=== PATIENT | male | born 1940 | race Caucasian/White ===

== ENCOUNTER → 2020-07-18 08:37 | Outpatient (BNVA) | payer MEDICARE, SELFPAY | PROVIDERS: Visit Provider Urology | DX: N39.0 Urinary tract infection, site not specified (principal); R32 Unspecified urinary incontinence; C67.9 Malignant neoplasm of bladder, unspecified | CPT/HCPCS: 81002; 99212 ==

== ENCOUNTER 2021-01-17 08:43 | Outpatient (REF) | payer MEDICARE, BC, SELFPAY ==
[2021-01-17 17:32] LABS: Urine Cytology See Pathology rpt
== END 2021-01-17 08:44 | disposition home or self-care (01) ==
LOC: HO.LNP 08:43
PROVIDERS: Visit Provider Urology
DX: C67.9 Malignant neoplasm of bladder, unspecified (principal); N39.0 Urinary tract infection, site not specified
CPT/HCPCS: 51798; 88112; 99212

== ENCOUNTER 2021-04-24 11:44 | Outpatient (REF) | payer MEDICARE, BC, SELFPAY ==
[2021-04-24 12:59] LABS: Appearance Urine TURBID; Color Urine YELLOW; Glucose Urine UA NEG (NEG); Nitrite Urine NEG (NEG); Urine Blood 3+ (NEG); Urine Ketones NEG (NEG); Urine Protein 2+ MG/DL (NEG-TRACE)
[2021-04-24 13:04] LABS: Leukocyte Esterase Urine 3+ (NEG)
[2021-04-24 13:06] LABS: WBC Urine TNTC /HPF (0-4)
[2021-04-24 13:07] LABS: Amorphous Sediment Urine 2+ /LPF; Bacteria Urine 1+ /LPF
== END 2021-04-24 11:45 | disposition home or self-care (01) ==
LOC: HO.LAB 11:44
PROVIDERS: PCP Internal Medicine; Visit Provider Urology
DX: N39.0 Urinary tract infection, site not specified (principal)
CPT/HCPCS: 81001; 87086

== ENCOUNTER 2021-05-26 10:09 | Outpatient (REF) | payer MEDICARE, BC, SELFPAY ==
[2021-05-26 11:21] LABS: Blood Urea Nitrogen 23 mg/dL (9-16); Estimated Glomerular Filt Rate > 60
[2021-05-26 11:51] LABS: Appearance Urine TURBID; Color Urine YELLOW; Glucose Urine UA NEG (NEG); Leukocyte Esterase Urine 2+ (NEG); Nitrite Urine NEG (NEG); PH 6.5 (5.0-8.0); Specific Gravity - Urine 1.015 (1.005-1.025); Urine Blood 3+ (NEG); Urine Ketones NEG (NEG); Urine Protein 1+ MG/DL (NEG-TRACE)
[2021-05-26 13:12] LABS: WBC Urine 0 /HPF (0-4)
[2021-05-26 13:13] LABS: Oval Fat Bodies Urine NOTED
== END 2021-05-26 10:10 | disposition home or self-care (01) ==
LOC: HO.LAB 10:09
PROVIDERS: PCP Internal Medicine; Visit Provider Urology
DX: C67.9 Malignant neoplasm of bladder, unspecified (principal)
CPT/HCPCS: 36415; 81001; 82565; 84520

== ENCOUNTER 2021-06-02 08:08 | Outpatient (REF) | payer MEDICARE, BC, SELFPAY ==
--- NOTE | ~2021-06-02 | CT_ITS ---
EXAMINATION: CT ABDOMEN AND PELVIS WITHOUT CONTRAST The patient returned for delayed images following IV contrast for better opacification of the collecting systems, ureters and bladder with excreted contrast. Patient returned approximately 4 1/2 hours following the IV injections. See report from earlier the same day.
--- NOTE | ~2021-06-02 | CT_ITS ---
EXAMINATION: CT ABDOMEN AND PELVIS WITHOUT AND WITH CONTRAST CLINICAL INFORMATION: Bladder cancer COMPARISON: Previous CT of the abdomen and pelvis most recent December 2018 TECHNIQUE: Multidetector volumetric imaging was performed of the abdomen and pelvis before and after the IV administration of 85 mL of Omnipaque 350 intravenous contrast. Sagittal and coronal reformatted images were obtained on the technologist's workstation. The patient returned later on the same day for repeat imaging of the collecting systems This CT examination was performed using dose optimization techniques as appropriate, variously including the following: *Automated exposure control *Adjustment of mA and/or kV according to patient size (this includes techniques or standardized protocols for targeted exams where dose is matched to indication/reason for exam; i.e. extremities or head) *Use of iterative reconstruction technique DLP: 957 mGy-cm FINDINGS: LUNG BASES: The visualized lung bases are unremarkable. LIVER, GALLBLADDER, AND BILIARY TREE: The liver is normal in size, shape, and attenuation. No focal hepatic lesion or biliary ductal dilatation is present. The gallbladder has been removed. PANCREAS: Unremarkable SPLEEN: Unremarkable ADRENAL GLANDS: Unremarkable KIDNEYS AND URETERS: There is bilateral renal cortical thinning or scarring. There is mild right hydronephrosis. There is no left hydronephrosis. The right distal ureter appears slightly dilated. This is similar to previous there are small bilateral low-attenuation renal lesions suggestive of cysts. The largest measures 1 cm in the upper pole of the right kidney. BLADDER: The bladder is irregularly shaped and may represent a neobladder. No bladder mass or wall thickening is appreciated. GASTROINTESTINAL TRACT: The small and large bowel are unremarkable. The appendix is unremarkable. ABDOMINAL WALL: There are postsurgical changes to the anterior abdominal wall. There are several small upper abdominal ventral or incisional hernias containing fat. There is a larger lower ventral hernia containing small bowel in the periumbilical region. There is a smaller 1 cm hernia containing small bowel to the left. These appear unchanged. There is a left inguinal hernia containing fat. LYMPH NODES: There is shotty bilateral inguinal lymphadenopathy. There is shotty retroperitoneal lymphadenopathy. There is shotty small bowel mesentery lymphadenopathy and increased fat stranding in the small bowel mesentery. No enlarged lymph nodes are seen. VASCULAR: Unremarkable PELVIC VISCERA: The prostate gland appears to have been removed. OSSEOUS STRUCTURES: There are degenerative changes of the spine. There is a 5 mm anterior subluxation subluxation of L3 with respect to L4 probably related to facet arthritis. No fracture or bone lesion is seen. CT/CT abdomen pelvis wo/w con IMPRESSION: Mild right hydronephrosis and ureteral dilatation. No collecting system or ureteral mass seen. Irregularly-shaped bladder or neobladder. No bladder mass or wall thickening seen. Bilateral renal cysts. Postsurgical changes to the anterior abdominal wall and several small ventral hernias containing fat and small bowel. No evidence of obstruction. Fleischner guidelines were followed.
[2021-06-02] MEDS: iohexoL 350 MG/ML 100 ML INFUS..BTL IV (09:23)
== END 2021-06-02 08:09 | disposition home or self-care (01) ==
LOC: HO.CT 08:08
PROVIDERS: Visit Provider Urology
DX: C67.9 Malignant neoplasm of bladder, unspecified (principal)
CPT/HCPCS: 74176; 74178; Q9967

== ENCOUNTER 2021-07-18 08:29 | Outpatient (REF) | payer MEDICARE, BC, SELFPAY ==
[2021-07-21 11:54] LABS: Urine Cytology See Pathology rpt
== END 2021-07-18 08:30 | disposition home or self-care (01) ==
LOC: HO.LAB 08:29
PROVIDERS: PCP Internal Medicine; Visit Provider Urology
DX: C67.9 Malignant neoplasm of bladder, unspecified (principal); N39.0 Urinary tract infection, site not specified; R32 Unspecified urinary incontinence
CPT/HCPCS: 51798; 88112; 99212

== ENCOUNTER 2022-01-15 14:05 | Outpatient (REF) | payer MEDICARE, BC, SELFPAY | END 2022-01-15 14:06 | disposition home or self-care (01) | LOC: HO.LAB 14:05 | PROVIDERS: Visit Provider Urology | DX: N39.0 Urinary tract infection, site not specified (principal); C67.9 Malignant neoplasm of bladder, unspecified | CPT/HCPCS: 99212 ==

== ENCOUNTER 2023-01-19 08:06 | Outpatient (REF) | payer MEDICARE, BC, SELFPAY ==
[2023-01-19 16:32] LABS: Urine Cytology See Pathology rpt
== END 2023-01-19 08:07 | disposition home or self-care (01) ==
LOC: HO.LAB 08:06
PROVIDERS: Visit Provider Urology
DX: C67.9 Malignant neoplasm of bladder, unspecified (principal); N39.0 Urinary tract infection, site not specified; Z79.899 Other long term (current) drug therapy
CPT/HCPCS: 81003; 88112; 99212

== ENCOUNTER 2023-01-19 08:06 | Outpatient (AMB) | payer MEDICARE, BC, SELFPAY ==
--- NOTE | 2023-01-19 08:08 | A.OFFVIS_ITS ---
Intake Intake Visit Reasons: 1Y Follow Up(Bladder Cancer/PVR) Intake Note: Patient is present for Follow Up Urology Med: None Antibiotic Allergy: None Blood Thinner: Rivaroxaban Pharmacy: [facility] Allergies No Known Allergies [No Known Allergies*] Allergy (Verified 01/19/23 08:09) Medication List - Last Reconciled 01/19/23 by Axel Merino MD acyclovir 400 mg PO acyclovir mg PO amlodipine 5 mg PO DAILY blood sugar diagnostic ([employer] test strips) As directed carvedilol 25 mg PO BID furosemide 20 mg PO DAILY lancets ([employer] UltraSoft 2 Lancet) As directed levofloxacin 750 mg PO DAILY metformin 500 mg PO DAILY miscellaneous medical supply ([employer]ian Incontin Clamp) As directed mupirocin 2% topical TID nitrofurantoin macrocrystal 50 mg PO BEDTIME pravastatin 10 mg PO DAILY rivaroxaban 10 mg PO DAILY semaglutide (Ozempic) mg subcut sulfamethoxazole-trimethoprim 800-160 mg (Bactrim DS) 1 tab PO BID 5 days trifluridine 1% drps ophthalmic (eye) HPI HPI Comments History of Present Illness Details James is a pleasant male. He is seen for the following urologic conditions - bladder cancer Stable No urinary tract infections since last visit Imaging stable Bladder cancer radical cystectomy with neobladder in 1996 Ongoing surveillance Imaging - last CT 2018 - 11/21 NAD, mild right hydroureteronephr osis down to neobladder Cystoscopy - 2019 inflamed portions of ileum PFSH Medical History Borderline diabetes HTN (hypertension) History of recurrent UTIs History of bladder cancer Surgical History History of surgery History of prostatectomy Review of Systems Const Denies chills and Denies fever(s) Card Reports no additional complaints and Denies syncope Resp Denies cough GI Denies abdominal pain and Denies heartburn Reports as per HPI and Denies change in libido Neuro Denies syncope Psych Denies change in libido Endo Denies change in libido Physical Exam Const General: cooperative, healthy appearing, comfortable and no acute distress Orientation/consciousness: patient oriented x3 HEENT Face and sinus: Yes normal facial exam Mouth: moist mucous membranes Neck Neck: Yes normal visual inspection, Yes full ROM and Yes trachea midline Chest Chest palpation & inspection: normal inspection of the chest Resp Effort & Inspection: normal respiratory effort, able to speak in complete sentences and no respiratory distress GI Inspection: Yes normal to inspection Back/Spine/Pelvis Cervical Spine: normal cervical lordosis Thoracic/Lumbar Spine: thoracic and lumbar spine normal to inspection Skin General skin exam: no rashes or lesions noted Neuro General: patient oriented x3, gait normal, tone normal and moves all extremities Extrem General: Yes normal to inspection and Yes capillary refill normal Results AMB Urinalysis, Automated UA Leukoctes 500 [place]/uL Last Edit by Kierra Singleton [facility] on 01/19/23 08:15 UA Nitrite Negative Last Edit by Kierra Singleton [facility] on 01/19/23 08:15 UA Urobilinogen 0.2 mg/dL Last Edit by Kierra Singleton A on 01/19/23 08:1 5 UA Protein 30 mg/dL Last Edit by Kierra Singleton [facility] on 01/19/23 08:15 UA pH 6.0 Last Edit by Kierra Singleton [facility] on 01/19/23 08:15 UA Blood 80 Clem/uL Last Edit by Kierra Singleton [facility] on 01/19/23 08:15 UA Specific [place] 1.015 Last Edit by Kierra Singleton [facility] on 01/19/23 08: 15 UA Ketone Negative Last Edit by Kierra Singleton [facility] on 01/19/23 08:15 UA Bilirubin 0 mg/dL Last Edit by Kierra Singleton [facility] on 01/19/23 08:15 UA Glucose 0 mg/dL Last Edit by Kierra Singleton [facility] on 01/19/23 08:15 Results Reviewed Results Reviewed: Laboratory Last Values Urine pH (Auto) 6.0 01/19/23 08:10 Specific [place] (Auto) 1.015 01/19/23 08:10 Urine Protein (Auto) 30 mg/dL 01/19/23 08:10 Glucose (UA)(Auto) 0 mg/dL 01/19/23 08:10 Urine Ketones (Auto) Negative 01/19/23 08:10 Urine Blood (Auto) 80 Clem/uL 01/19/23 08:10 Urine Nitrite (Auto) Negative 01/19/23 08:10 Urine Bilirubin (Auto) 0 mg/dL 01/19/23 08:10 Urine Urobilinogen (Auto) 0.2 mg/dL 01/19/23 08:10 Leukocyte Esterase (Auto) 500 [place]/uL 01/19/23 08:10 Assessment & Plan Assessment & Plan (1) Recurrent UTI (urinary tract infection): Code(s): N39.0 - Urinary tract infection, site not specified (2) Bladder cancer: Code(s): C67.9 - Malignant neoplasm of bladder, unspecified Plan Questions 12 month follow-up imaging Orders: Orders AMB Urinalysis Automated Today C67.9 - Malignant neoplasm of bladder, unspecified, Z13.9 - Encounter for screening, unspecified Blood Urea Nitrogen 364 Days C67.9 - Malignant neoplasm of bladder, unspecified Creatinine 364 Days C67.9 - Malignant neoplasm of bladder, unspecified Urine Cytology Today C67.9 - Malignant neoplasm of bladder, unspecified CT abdomen pelvis wo/w IV con 364 Days C67.9 - Malignant neoplasm of bladder, unspecified Patient Instructions: Imaging studies, laboratory and physical exam results were discussed and reviewed in detail. No major barriers to patient understanding were identified. An opportunity to ask questions regarding the treatment plan was provided. All questions were answered. The patient expressed understanding and agreement with the above treatment plan. The patient is aware they should contact our office by phone for worsening of their current condition or the appearance of new urologic symptoms. Compliance is encouraged with any medications and followup testing that is ordered. It is a privilege to participate in the urologic care of your patient. If you have any questions or concerns regarding treatment for the above conditions, or other urologic issues, please do not hesitate to contact me. The office telephone contact is [phone]. This note is constructed using voice recognition software. While every effort has been made to ensure accuracy adoption counselor errors may have been included. Yours sincerely, Dr Axel Merino MD, [facility] - Urology Providers of Expert, Compassionate Care for the Genitourinary System Coding Level of Care Code Est Pt Level 4 (44761) Diagnoses Recurrent UTI (urinary tract infection) N39.0 Bladder cancer C67.9
== END 2023-01-19 09:07 | disposition home or self-care (01) ==
PROVIDERS: PCP Internal Medicine; Visit Provider Urology
DX: C67.9 Malignant neoplasm of bladder, unspecified (principal); N39.0 Urinary tract infection, site not specified; Z13.9 Encounter for screening, unspecified
CPT/HCPCS: 99214

== ENCOUNTER 2023-11-12 07:30 | Outpatient (REF) | payer MEDICARE, BC, SELFPAY ==
[2023-11-12 10:56] LABS: Appearance Urine Turbid; Color Urine Dark Yellow; Glucose Urine UA Negative (Negative); Leukocyte Esterase Urine Large (3+) (Negative); Nitrite Urine Negative (Negative); Specific Gravity - Urine 1.015 (1.005-1.025); UMIC TRIGGER UA YES; Urine Blood Large (3+) (Negative); Urine Ketones Negative (Negative); Urine Protein 30 (1+) mg/dL (Neg-Trace)
[2023-11-12 11:17] LABS: Bacteria Urine 3+ (None Seen); Hyaline Casts Urine >20 /LPF (0-2); RBC Urine >20 /HPF (0-2); WBC Urine >50 /HPF (0-5)
== END 2023-11-12 07:31 | disposition home or self-care (01) ==
LOC: HO.HMGCLDS 07:30
PROVIDERS: PCP Internal Medicine; Visit Provider Urology
DX: C67.9 Malignant neoplasm of bladder, unspecified (principal); N39.0 Urinary tract infection, site not specified; R32 Unspecified urinary incontinence
CPT/HCPCS: 81001; 87086

== ENCOUNTER 2024-01-11 06:54 | Outpatient (REF) | payer MEDICARE, BC, SELFPAY ==
--- NOTE | ~2024-01-11 | CT_ITS ---
EXAMINATION: CT ABDOMEN AND PELVIS WITHOUT AND WITH CONTRAST CLINICAL INFORMATION: Malignant neoplasm of bladder. COMPARISON: CT abdomen pelvis 06/02/2021. TECHNIQUE: Multidetector volumetric imaging was performed of the abdomen and pelvis before and after the IV administration of 350 mL of Omnipaque intravenous contrast. Sagittal and coronal reformatted images were obtained on the technologist's workstation. This CT examination was performed using dose optimization techniques as appropriate, variously including the following: *Automated exposure control *Adjustment of mA and/or kV according to patient size (this includes techniques or standardized protocols for targeted exams where dose is matched to indication/reason for exam; i.e. extremities or head) *Use of iterative reconstruction technique DLP: 1236 mGy-cm. FINDINGS: LUNG BASES: The visualized lung bases are unremarkable. LIVER, GALLBLADDER, AND BILIARY TREE: The liver is normal in size but has a nodular border suggesting cirrhosis. No focal hepatic lesion or biliary ductal dilatation is present. Status post cholecystectomy. PANCREAS: Unremarkable. SPLEEN: Unremarkable. ADRENAL GLANDS: Unremarkable. KIDNEYS AND URETERS: Again noted is bilateral renal cortical thinning with focal areas of scarring. There is bilateral pelvocaliectasis, right greater than left . No nephrocalcinosis is seen. No renal masses are seen. Both ureters are dilated, right greater than left. No obstructing stones are seen in the ureters. At the junction of the right ureter and bladder, there is some increased soft tissue density seen (8:67 and allen image). BLADDER: No bladder calculi or bladder masses are seen. GASTROINTESTINAL TRACT: The small and large bowel are unremarkable. The appendix is unremarkable. ABDOMINAL WALL: A periumbilical hernia is seen containing nonobstructed small bowel. There are epigastric hernias status post repair. LYMPH NODES: No retroperitoneal lymphadenopathy. VASCULAR: Calcific atherosclerotic changes are present in the aorta and iliofemoral vessels. There is no evidence of an abdominal aortic aneurysm. PELVIC VISCERA: Status post prostatectomy. OSSEOUS STRUCTURES: Degenerative changes are present throughout the spine. There is grade 1 anterolisthesis of L4 upon L5. No bony destructive lesions are seen. CT/CT abdomen pelvis wo/w IV con IMPRESSION: 1. Bilateral pelvocaliectasis and hydroureter, right greater than left. There is some increased soft tissue density at the junction of the right ureter and bladder. Cystoscopy may be useful for further evaluation. 2. Incidental note made of cirrhotic-appearing liver, cholecystectomy, prostatectomy and periumbilical hernia containing nonobstructed small bowel. Fleischner guidelines were followed. Electronically signed by: Mychal Keating MD 02/15/2024 09:16 PM EDT RP
[2024-01-11 08:01] LABS: Blood Urea Nitrogen 27 mg/dL (9-16); Estimated Glomerular Filt Rate 52
[2024-01-11] MEDS: iohexoL 350 MG/ML 75 ML INFUS..BTL 85 ML IV (09:31)
== END 2024-01-11 06:55 | disposition home or self-care (01) ==
LOC: HO.CT 06:54
PROVIDERS: PCP Internal Medicine; Visit Provider Urology
DX: C67.9 Malignant neoplasm of bladder, unspecified (principal)
CPT/HCPCS: 36415; 74178; 82565; 84520; Q9967

== ENCOUNTER 2024-02-11 08:31 | Outpatient (AMB) | payer MEDICARE, BC, SELFPAY ==
--- NOTE | 2024-02-11 08:39 | MHC.OFFVIS ---
Intake Visit Reasons: 1Y PVR/CT(set) Intake Note: Patient is present for 1Y Follow Up PVR/CT Urology Med:NITROFURANTOIN Antibiotic Allergy: None Blood Thinner: Rivaroxaban Team Leader Surgery Required: No Allergies No Known Allergies [No Known Allergies*] Allergy (Verified 02/11/24 08:43) HPI Comments Details: James is a pleasant male. He is seen for the following urologic conditions - bladder cancer - recurrent urinary tract infection Stable Question of urinary tract in the past week or so Maintained on daily nitrofurantoin Finds bladder emptying is optimized after bowel movement Recommend vitamin-C 1 mg daily Imaging stable Bladder cancer radical cystectomy with neobladder in 1996 Ongoing surveillance Imaging - last CT 2018 - 11/21 NAD, mild right hydroureteronephrosis down to neobladder Cystoscopy - 2019 inflamed portions of ileum Recurrent UTI in setting of neobladder Daily nitrofurantoin PFSH Medical History Borderline diabetes HTN (hypertension) History of recurrent UTIs History of bladder cancer Surgical History History of surgery History of prostatectomy Review of Systems Const Denies chills and Denies fever(s) Card Reports no additional complaints and Denies syncope Resp Denies cough GI Denies abdominal pain and Denies heartburn Reports as per HPI and Denies change in libido Neuro Denies syncope Psych Denies change in libido Endo Denies change in libido Physical Exam Const General: cooperative, healthy appearing, comfortable and no acute distress Orientation/consciousness: patient oriented x3 HEENT Face and sinus: Yes normal facial exam Mouth: moist mucous membranes Neck Neck: Yes normal visual inspection, Yes full ROM and Yes trachea midline Chest Chest palpation & inspection: normal inspection of the chest Resp Effort & Inspection: normal respiratory effort, able to speak in complete sentences and no respiratory distress GI Inspection: Yes normal to inspection Back/Spine/Pelvis Cervical Spine: normal cervical lordosis Thoracic/Lumbar Spine: thoracic and lumbar spine normal to inspection Skin General skin exam: no rashes or lesions noted Neuro General: patient oriented x3, gait normal, tone normal and moves all extremities Extrem General: Yes normal to inspection and Yes capillary refill normal Results AMB Urinalysis, Automated UA Leukoctes 500 [place]/uL Last Edit by ABAD Cosme on 02/11/24 08:53 UA Nitrite Negative Last Edit by Tuyet Warner [facility] on 02/11/24 08:53 UA Urobilinogen 0.2 mg/dL Last Edit by Tuyet Warner [facility] on 02/11/24 08:53 UA Protein 30 mg/dL Last Edit by Tuyet Warner [facility] on 02/11/24 08:53 UA pH 6.0 Last Edit by Tuyet Warner [facility] on 02/11/24 08:53 UA Blood 200 Clem/uL Last Edit by Tuyet Warner [facility] on 02/11/24 08:53 UA Specific [place] 1.015 Last Edit by Tuyet Warner [facility] on 02/11/24 08:53 UA Ketone Negative Last Edit by Tuyet Warner [facility] on 02/11/24 08:53 UA Bilirubin 0 mg/dL Last Edit by Tuyet Warner [facility] on 02/11/24 08:53 UA Glucose 0 mg/dL Last Edit by Tuyet Warner [facility] on 02/11/24 08:53 Results Reviewed Results Reviewed: Laboratory Last Values Urine pH (Auto) 6.0 02/11/24 08:52 Specific [place] (Auto) 1.015 02/11/24 08:52 Urine Protein (Auto) 30 mg/dL 02/11/24 08:52 Glucose (UA)(Auto) 0 mg/dL 02/11/24 08:52 Urine Ketones (Auto) Negative 02/11/24 08:52 Urine Blood (Auto) 200 Clem/uL 02/11/24 08:52 Urine Nitrite (Auto) Negative 02/11/24 08:52 Urine Bilirubin (Auto) 0 mg/dL 02/11/24 08:52 Urine Urobilinogen (Auto) 0.2 mg/dL 02/11/24 08:52 Leukocyte Esterase (Auto) 500 [place]/uL 02/11/24 08:52 Assessment & Plan Assessment & Plan (1) Recurrent UTI (urinary tract infection): Code(s): N39.0 - Urinary tract infection, site not specified Category: Medical (2) Bladder cancer: Code(s): C67.9 - Malignant neoplasm of bladder, unspecified Category: Medical Plan Twelve month follow-up Orders: Orders AMB Urinalysis Automated Today Z13.9 - Encounter for screening, unspecified Patient Instructions: Imaging studies, laboratory and physical exam results were discussed and reviewed in detail. No major barriers to patient understanding were identified. An opportunity to ask questions regarding the treatment plan was provided. All questions were answered. The patient expressed understanding and agreement with the above treatment plan. The patient is aware they should contact our office by phone for worsening of their current condition or the appearance of new urologic symptoms. Compliance is encouraged with any medications and followup testing that is ordered. It is a privilege to participate in the urologic care of your patient. If you have any questions or concerns regarding treatment for the above conditions, or other urologic issues, please do not hesitate to contact me. The office telephone contact is [phone]. This note is constructed using voice recognition software. While every effort has been made to ensure accuracy manager scheduling errors may have been included. Yours sincerely, Dr Axel Merino MD, [facility] - Urology Providers of Expert, Compassionate Care for the Genitourinary System Coding Level of Care Code Est Pt Level 4 (87343) Diagnoses Recurrent UTI (urinary tract infection) N39.0 Bladder cancer C67.9
== END 2024-02-11 09:16 | disposition home or self-care (01) ==
PROVIDERS: PCP Internal Medicine; Visit Provider Urology
DX: N39.0 Urinary tract infection, site not specified (principal); C67.9 Malignant neoplasm of bladder, unspecified; Z13.9 Encounter for screening, unspecified
CPT/HCPCS: 99214

== ENCOUNTER → 2024-02-11 08:31 | Outpatient (BNVA) | payer MEDICARE, BC, SELFPAY | PROVIDERS: PCP Internal Medicine; Visit Provider Urology | DX: C67.9 Malignant neoplasm of bladder, unspecified (principal); N39.0 Urinary tract infection, site not specified; Z85.46 Personal history of malignant neoplasm of prostate; Z79.899 Other long term (current) drug therapy | CPT/HCPCS: 81003; 99212 ==

== ENCOUNTER 2024-07-27 13:42 | Outpatient (REF) | payer MEDICARE, BC, SELFPAY ==
--- NOTE | ~2024-07-27 | US_ITS ---
EXAMINATION: US RETROPERITONEUM HISTORY: CKD stage IV TECHNIQUE: Real-time grayscale ultrasound imaging of the kidneys was performed and images were reviewed. COMPARISON: Correlation is made with a renal ultrasound dated 01/10/[address] of the abdomen and pelvis dated 01/11/2024. FINDINGS: Right kidney: The right kidney measures 11.9 x 5.9 x 5.6 cm. Renal parenchymal echotexture and thickness are normal. There are multiple cysts measuring up to 10 mm in size. There is moderate hydronephrosis and hydroureter as seen on CT. No calculi are identified. Left Kidney: The left kidney measures 11.3 x 5.6 x 4.1 cm. Renal parenchymal echotexture and thickness are normal. Multiple cysts are noted measuring up to 1.4 cm in size. There is an extrarenal pelvis. No hydronephrosis or calculi are identified. The patient is status post cystectomy with formation of a neobladder. Debris is seen in the neobladder. US/US retroperitoneal comp IMPRESSION: 1. Status post cystectomy with formation of a neobladder containing debris. 2. Moderate right hydroureteronephrosis as seen on CT. This may be due to reflux. 3. Bilateral renal cysts as described. Electronically signed by: James Reveles MD 07/28/2024 07:36 AM EDT
[2024-07-27 17:30] LABS: Anion Gap 11 (12-20); Blood Urea Nitrogen 40 mg/dL (9-16); Carbon Dioxide 19 mmol/L (22-29); Chloride 113 mmol/L (96-108); Estimated Glomerular Filt Rate 42; Glucose Random 70 mg/dL (60-115); Potassium 4.6 mmol/L (3.3-5.1); Sodium 138 mmol/L (135-145)
== END 2024-07-27 13:43 | disposition home or self-care (01) ==
LOC: HO.US 13:42
PROVIDERS: PCP Internal Medicine; Visit Provider Nurse Practitioner
DX: N18.4 Chronic kidney disease, stage 4 (severe) (principal)
CPT/HCPCS: 36415; 76770; 80048

== ENCOUNTER → 2024-07-27 14:14 | Outpatient (BNV) | payer MEDICARE, BC, SELFPAY | PROVIDERS: PCP Internal Medicine; Visit Provider Radiology Diagnostic Radiology | DX: N18.4 Chronic kidney disease, stage 4 (severe) (principal) | CPT/HCPCS: 76770 ==

== ENCOUNTER 2024-08-15 11:11 | Outpatient (REF) | payer MEDICARE, BC, SELFPAY ==
[2024-08-15 12:35] LABS: Anion Gap 11 (12-20); Blood Urea Nitrogen 27 mg/dL (9-16); Calcium 9.2 mg/dL (8.4-10.2); Carbon Dioxide 25 mmol/L (22-29); Chloride 110 mmol/L (96-108); Estimated Glomerular Filt Rate 53; Glucose Random 102 mg/dL (60-115); Potassium 4.5 mmol/L (3.3-5.1); Sodium 141 mmol/L (135-145)
--- OUTSIDE RECORDS SUMMARY | 2024-08-15 13:54 | XMS_ITS | Clinical Summary ---
Author Organization [facility]. Address [address] [address] Phone Care Team Providers Care Valve And Regulator Repairer Name Role Phone Tello Valadez MD Primary Care Provider [phone] Allergies Active Allergy Reactions Criticality Noted Date Comments Irbesartan Rash Low 06/08/2024 Medications amLODIPine (NORVASC) 5 MG tablet 05/03/2020 Active aspirin (ST MAHAD) 81 MG EC tablet Take by mouth Active atorvastatin (LIPITOR) 80 MG tablet Take 80 mg by mouth 05/17/2024 Active carvedilol (COREG) 25 MG tablet Take 25 mg by mouth in the morning and 25 mg in the evening. Take with meals. 05/14/2020 Active cholecalciferol (VITAMIN D-3) 50 MCG (1999) capsule Take by mouth Active furosemide (LASIX) 20 MG tablet 05/12/2020 Active isosorbide mononitrate (IMDUR) 30 MG 24 hr tablet Take 30 mg by mouth 05/17/2024 Active loratadine (CLARITIN) 10 MG tablet Take by mouth 02/13/2022 Active metFORMIN (GLUCOPHAGE) 500 MG tablet Take 500 mg by mouth in the morning and 500 mg in the evening. Take with meals. 04/05/2020 Active pravastatin (PRAVACHOL) 10 MG tablet 05/08/2020 Active Semaglutide,0.25 or 0.5MG/DOS, (Ozempic, 0.25 or 0.5 MG/DOSE,) 2 MG/1.5ML solution pen-injector Active rivaroxaban (Xarelto) 10 MG tablet 06/02/2020 Active nitroglycerin (NITROSTAT) 0.[address] 0.4 mg under the tongue every 5 (five) minutes if needed for chest pain Active Multiple Vitamin (multivitamin) capsule Take 1 capsule by mouth 1 (one) time each day Active Nitrofurantoin Anhydrous powder Take by mouth 05/17/2024 Active Active Problems Problem Noted Date Diagnosed Date Pulmonary embolism 02/13/2022 Bradycardia 02/13/2022 Carcinoma of urinary bladder 02/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 History of deep vein thrombosis 02/13/2022 Multinodular goiter 02/13/2022 Spinal stenosis of lumbar region 02/13/2022 Subclinical hyperthyroidism 02/13/2022 Supraventricular tachycardia 02/13/2022 Acute deep venous thrombosis of left lower extre mity 06/04/2020 Acute pulmonary embolism 06/04/2020 Essential hypertension 06/04/2020 H/O: malignant neoplasm 06/04/2020 Herpes simplex keratitis 06/04/2020 Mixed hyperlipidemia 06/04/2020 Thrombocytopenia 06/04/2020 Type 2 diabetes mellitus without complication Encounters Date Type Department Care Team Description 06/08/2024 1:00 PM EST [facility] Visit [facility] [address] [address] David Singleton MD Stage 3 chronic kidney disease, not otherwise specified (HCC) (Primary Dx); Diabetes mellitus, not otherwise specified (HCC); Hypertension; Other proteinuria 05/19/2024 9:30 AM EST Office [facility] [address] [address] David Singleton MD Stage 3 chronic kidney disease, not otherwise specified (HCC) (Primary Dx); Diabetes mellitus, not otherwise specified (HCC); Hypertension; Other proteinuria 05/19/2024 Orders Only [facility] [address] [address] David Singleton MD from Last 3 Months Family History Medical History Relation Comments Diabetes Father Cancer Mother Heart disease Mother Relation Status Comments Father Mother Social History Tobacco Use Types Packs/Day Years Used Date Smoking Tobacco: Former Cigarettes Smokeless Tobacco: Never Tobacco Cessation:Counseling Given: Not Answered Alcohol Use Standard Drinks/Week Comments Yes 0 (1 standard drink = 0.6 oz pur e alcohol) Sex and Gender Information Value Date Recorded Sex Assigned at Not on file Legal Sex Male 3:19 PM EST Gender Identity Not on file Sexual Orientation Not on file Last Filed Vital Signs Vital Sign Reading Time Taken Comments Blood Pressure 130/62 06/08/2024 1:09 PM EST Pulse 70 06/08/2024 1:09 PM EST Temperature - - Respiratory Rate - - Oxygen Saturation - - Inhaled Oxygen Concentration - - Weight 84.4 kg (186 lb) 06/08/2024 1:09 PM EST Height - - Body Mass Index - - Plan of Treatment Upcoming Encounters Date Type Department Care Team (Late st Contact Info) Description 08/21/2024 4:15 PM EDT Office Visit [facility] [address] [phone] David Singleton MD [facility] [address] [phone] 10/06/2024 8:30 AM EDT Office Visit [facility] [address] [phone] David Singleton MD [facility] [address] Health Maintenance Due Date Last Done Comments Pneumococcal Vaccine: 50+ Ye ars (1 of 2 - PCV) 1959 Diabetes: Hemoglobin A1C 05/15/2024 Diabetes: Ophthalmology Exam 05/15/2024 Diabetes: Pedal Pulse Checked 05/15/2024 Diabetes: Sensory Foot Exam 05/15/2024 Diabetes: Visual Foot Exam 05/15/2024 Influenza Vaccine (Season Ended) 2025 Hepatitis B Vaccine Aged Out No longe r eligible based on patient's age to complete this topic Procedures Procedure Name Priority Date/Time Associated Diagnosis Comments US RENAL LIMITED Routine 06/07/2024 10:5 4 AM EST Stage 3 chronic kidney disease, not otherwise specified (HCC) VITAMIN D 25 HYDROXY Routine 05/19/2024 10:28 AM EST URINE ALBUMIN / CREATININE RATIO Routine 05/19/2024 10:28 AM EST RENAL FUNCTION PANEL Routine 05/19/2024 10:28 AM EST from Last 3 Months Results * Ultrasound renal limited (06/07/2024 10:54 AM EST) Anatomical Region Laterality Modality Abdomen, Pelvis Ultrasound David Singleton MD CV VASCULAR PROCEDURES Final Res ult * (ABNORMAL) Urine Albumin / Creatinine Ratio (05/19/2024 10:28 AM EST) Creatinine, Ur 50.5 Not Estab. mg/dL [facility] Albumin, Urine 103.8 Not Estab. ug/mL [facility] Albumin/Creatin ine Ratio 206(H) 0 - 29 mg/g creat [facility] Comment: ? Normal: ?0 - ??29 ? Moderately increased: 30 - 300 ? Severely increased: ? >300 05/19/2024 10:2 8 AM EST 05/19/2024 David Singleton MD LAB URINE ORDERABLES Final Resul t [facility] [address] [place] [address] * Vitamin D 25 Hydroxy (05/19/2024 10:28 AM EST) Vitamin D, 25-OH, Total 53.5 30.0 - 100.0 ng/mL [facility] Comment: Vitamin D deficiency has been defined by the Fraser of Medicine and an Endocrine Society practice guideline as a level of serum 25-OH vitamin D less than 20 ng/mL (1,2). The Endocrine Society went on to further define vitamin D insufficiency as a level between 21 and 29 ng/mL (2). 1. IOM ([place] of Medicine). 2010. Dietary reference ?? intakes for calcium and D. [place]: The ?? National AcademInaaya Press. 2. Gisselle MF, Cindy HAYS, Karlos JUAREZ, et al. ?? Evaluation, treatment, and prevention of vitamin D ?? deficiency: an Endocrine Society clinical practice ?? guideline. JCEM. 2010; 96(7):1911-30. 05/19/2024 10:2 8 AM EST 05/19/2024 us David Singleton MD LAB BLOOD ORDERABLES Final Resul t [facility] [address] [place] [address] * (ABNORMAL) Renal Function Panel (05/19/2024 10:28 AM EST) Glucose 170(H) 70 - 99 mg/dL [facility] BUN 27 8 - 27 mg/dL [facility] Creatinine 1.56(H) 0.76 - 1.27 mg/dL [facility] eGFR CKD-EPI CR 2020 44(L) >59 mL/min/1.7 3 [facility] BUN/Creatinine Ratio 17 10 - 24 [facility] Sodium 142 134 - 144 mmol/L [facility] Potassium 5.5(H) 3.5 - 5.2 mmol/L [facility] Chloride 108(H) 96 - 106 mmol/L [facility] Bicarbonate (CO2) 21 20 - 29 mmol/L [facility] Calcium 9.2 8.6 - 10.2 mg/dL [facility] Albumin 3.8 3.7 - 4.7 g/dL [facility] Phosphorus 3.7 2.8 - 4.1 mg/dL [facility] 05/19/2024 10:2 8 AM EST 05/19/2024 us David Singleton MD LAB BLOOD ORDERABLES Final Resul t [facility] [address] [place] [address] from Last 3 Months Insurance Medicare [facility] Care Teams Valve And Regulator Repairer Relationship Specialty Start Date End Date Tello Valadez MD [address] [place] [address] PCP - General Internal Medicine 05/15/24
--- OUTSIDE RECORDS SUMMARY | 2024-08-15 13:54 | XMS_ITS | Continuity of Care Document ---
Author Organization [facility] [address] [place] [address] Phone [phone] Care Team Providers Care Paper Control Clerk Name Role Phone Tello Valadez M.D. Care Team Information Recei lashawn [phone] Problems Active Problems Provider Date Multinodular goiter Aliya Chamorro M.D. Onset: 02/13/2022 Supraventricular tachycardia Aliya willams M.D. Onset: 02/13/2022 Bradycardia Aliya Chamorro M.D. Ons et: 02/13/2022 Spinal stenosis of lumbar region Aliya Schulte M.D. Onset: 02/13/2022 Essential hypertension Harley Slade Onset: 02/13/2022 History of deep vein thrombosis Aliya Paniagua M.D. Onset: 02/13/2022 Pulmonary embolism Aliya Chamorro M.D. Onset: 02/13/2022 Sciatica Aliya Chamorro M.D. Ons et: 02/13/2022 Type 2 diabetes mellitus Aliya Chamorro M.D. Onset: 02/13/2022 Subclinical hyperthyroidism Aliya francis M.D. Onset: 02/13/2022 Carcinoma of bladder Ricky Slade Onset: 02/13/2022 Social History Type Date Description Comments Sex Unknown Lives With Spouse Work Status Retired ETOH Use Occasionally consumes wine Tobacco Use Start: Unknown End: Unknown Patient is a former smoker Quit around age 33 Smoking Status Reviewed: 08/19/22 Patient is a former smoker Quit around age 33 Allergies and adverse reactions Active Allergies Criticality Reaction Severity Comments Date Irbesartan Unable to assess criticality rash 02/13/2022 Inactive Allergies NKDA Unable to assess criticality 02/13/2022 Medications Active Medications SIG Qnty Indications Order ing Provider Date Nitrofurantoin Mdagtidncgrp47ud Capsules 1 cap by mouth once a day Aliya Chamorro M.D. 08/19/2022 Hudukgtqtl46gw Tablets 1 by mouth every day 90tabs Aliya Chamorro M.D. 02/13/2022 Budqg2ca Capsules 1 by mouth every day Aliya Chamorro M.D. 02/13/2022 [facility] Ultrasoft LancetsMisc Tello Valadez M.D. Trhdzeutgw90jm Tablets Take 1 Tablet By Mouth Twice A Day Tello Valadez M.D. Ozempic (0.25 Or 0.5 MG/Dose)2mg/1.5ML Solution Pen-Inject Inject 0.5 MG Subcutanously Once Weekly Tello Valadez M.D. Amlodipine Vhgbdair1gg Tablets Take 1 Tablet By Mouth Every Day Tello Valadez M.D. Frbnrlrerl64me Tablets Take 1 Tablet By Mouth Every Day Tello Valadez M.D. Metformin FTV514po Tablets Take 1 Tablet By Mouth Once A Day Tello Valadez M.D. Onetouch VerioStrips Test 3 Times Daily Tello Valadez M.D. Pravastatin Anqfmr79gy Tablets Take 1 Tablet By Mouth Every Day Tello Valadez M.D. Ambreentouch Ultrasoft LancetsMisc Test 3 Times Daily Tello Valadez M.D. Aspirin Ec Low Wznn37jo Tablets DR 1 by mouth every day Agnes Chamorro M.D. Vitamin S694nyo (2000 Ut) Capsules 1 by mouth every day Aliya Chamorro M.D. Vitamin B ComplexTablets 1 every day Aliya Chamorro M.D. Multivitamin Men 50+Men 50+ Tablets 1 by mouth every day Aliya Chamorro M.D. Vital Signs Date Vital Result Comment 01/07/2024 8:09am BP Systolic 130 mmHg BP Diastolic 50 mmHg Heart Rate 90 /min Height 70 inches 5'10 Weight 194.38 lb BMI (Body Mass Index) 27.9 kg/m2 Results Test Acquired Date Facility Test Result H/L Range Note TSH Rfx on Abnormal to Free T4 01/07/2024 [facility] TSH Rfx on Abnormal to Free T4 2.020 uIU/mL 0.450-4.5 00 TSH With Reflex To FT4 07/07/2023 [facility] TSH With Reflex To FT4 2.56 uIU/mL (0.4-4.2) TSH With Reflex To FT4 02/22/2023 [facility] TSH With Reflex To FT4 1.43 uIU/mL (0.4-4.2) Glucose Fingerstick 02/22/2023 Inhouse Glucose Fingerstick 133 Hemoglobin A1c 02/22/2023 Inhouse Hemoglobin A1c 6.4% TSH With Reflex To FT4 01/05/2023 [facility] TSH With Reflex To FT4 1.45 uIU/mL (0.4-4.2) TSH With Reflex To FT4 11/21/2022 [facility] TSH With Reflex To FT4 <pending> Hemoglobin A1c 11/18/2022 [facility] Lab Hemoglobin A1c 6.4 % High (4.0-5.6) 1 TSH With Reflex To FT4 11/18/2022 [facility] TSH With Reflex To FT4 0.02 uIU/mL Low (0.4-4.2) Free T4 11/18/2022 [facility] Free T4 1.23 ng/dL (0.70-1.8 0) TSH With Reflex To FT4 08/19/2022 [facility] TSH With Reflex To FT4 0.10 uIU/mL Low (0.4-4.2) Thyrotropin Receptor AB 08/19/2022 [facility] Lab Thyrotropin Receptor AB <1.10 2 Free T4 08/19/2022 [facility] Free T4 1.13 ng/dL (0.70-1.8 0) TSH With Reflex To FT4 02/13/2022 [facility] TSH With Reflex To FT4 0.32 uIU/mL Low (0.4-4.2) Free T4 02/13/2022 [facility] Free T4 1.09 ng/dL (0.70-1.8 0) 1 MONITORING: In known diabetic patients, hemoglobin A1c targets should be discussed with health care provider. DIAGNOSTIC USE: The [place] Diabetes Association (ADA) and the World Health Organization (WHO) recommend the use of HbA1c to diagnose diabetes using a threshold of 6.5%. Patients who have an HbA1c between 5.7% and 6.4% are considered at increased risk for developing diabetes in the future. CAUTION: Falsely low HbA1c results may be observed in patients with hemolytic anemia, homozygous forms of abnormal hemoglobin (e.g. SS, CC, SC), , recent blood loss or hemoglobin F greater than 7%. Fructosamine may be used as an alternate test in these cases. REFERENCE: ADA: Standards of Medical Care in Diabetes 2020, The Journal of Clinical and Applied Research and Education Volume 43, Supplement 1 2 Reference range: 0.0 0 to 1.75 Unit: IU/L [place] [address] Procedures Date Code Description Status 01/07/2024 41716 Collection Of Venous Blood B y Venipuncture Completed 07/07/2023 81160 Collection Of Venous Blood B y Venipuncture Completed 02/22/2023 37274 Collection Of Venous Blood B y Venipuncture Completed 11/18/2022 41047 Collection Of Venous Blood B y Venipuncture Completed 02/13/2022 98513 Collection Of Venous Blood B y Venipuncture Completed Medical Devices Description No Information Available Encounters Type Date Location Provider Dx Diagnosis Office Visit 01/07/2024 8:15a Main Office Aliya Chamorro M.D. 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 Plan of Treatment Future Appointment(s):* 09/06/2024 1:00 pm - Aliya Chamorro M.D. 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
--- OUTSIDE RECORDS SUMMARY | 2024-08-15 13:54 | XMS_ITS | Clinical Summary ---
Author Organization [facility] Address [address] [place] [address] Care Team Providers Care Brand Sales Manager Name Role Phone Tello Valadez MD Primary Care Provider [phone] Allergies No known active allergies Medications Medication Sig Dispensed Refills Start Date End Date Status acyclovir (ZOVIRAX) 400 MG tablet Take 400 mg by mouth 5 (five) times a day. 0 05/20/2020 Active amLODIPine (NORVASC) tablet 5 mg Take 5 mg by mouth daily. 0 05/03/2020 Active carvedilol (COREG) 25 MG tablet Take 25 mg by mouth 2 (two) times a day. 0 05/14/2020 Active furosemide (LASIX) 20 MG tablet Take 20 mg by mouth daily. 0 05/12/2020 Active metFORMIN (GLUCOPHAGE) tablet 500 mg 0 04/05/2020 Active pravastatin (PRAVACHOL) tablet 10 mg Take 10 mg by mouth daily. 0 05/08/2020 Active XARELTO 10 MG tablet 0 06/02/2020 Acti ve Active Problems Problem Noted Date Diagnosed Date Thrombocytopenia 06/04/2020 Essential hypertension 06/04/2020 Type 2 diabetes mellitus wit hout complication, without long-term current use of insulin 06/04/2020 Mixed hyperlipidemia 06/04/2020 History of bladder cancer 06/04/2020 Acute deep vein thrombosis (DVT) of left lower e xtremity 06/04/2020 Acute pulmonary embolism without acute cor pulmo nale 06/04/2020 Herpes keratitis 06/04/2020 Resolved Problems Problem Noted Date Diagnosed Date Resolved Date Paroxysmal atrial fibrillation 06/04/2020 06/04/2020 Social History Tobacco Use Types Packs/Day Years Used Date Smoking Tobacco: Former Smokeless Tobacco: Never Alcohol Use Standard Drinks/Week Comments Yes 0 (1 standard drink = 0.6 oz pur e alcohol) Socially Sex and Gender Information Value Date Recorded Sex Assigned at Not on file Gender Identity Not on file Sexual Orientation Not on file Plan of Treatment Health Maintenance Due Date Last Done Comments COVID-19 Vaccine (#1) 1940 Pneumococcal Vaccine (1 of 2 - PCV) 02/13/1948 Depression Screening 1954 Preventative Health Evaluation 02/13/1960 DTap / Tdap / Td (1 - Tdap) 1961 Shingrix-Zoster Vaccine (1 of 2) 02/13/1992 Fall Risk Assessment 2007 RSV Adult > 60+ Yrs or Pregn ant (1 - 1-dose 75+ series) 2017 Influenza Vaccine (#1) 2024 Hepatitis B Vaccines Aged Out No long er eligible based on patient's age to complete this topic RSV Ped < 20 months Aged Out No longe r eligible based on patient's age to complete this topic Care Teams Brand Sales Manager Relationship Specialty Start Date End Date Tello Valadez MD [address] [place] [id number] PCP - General Internal Medicine 05/21/20
--- OUTSIDE RECORDS SUMMARY | 2024-08-15 13:54 | XMS_ITS | Clinical Summary ---
Author Organization [facility] Address [address] [place] [address] Care Team Providers Care Extruder Operator Helper Name Role Phone Tello Valadez MD Primary Care Provider [phone] Social History Tobacco Use Types Packs/Day Years Used Date Smoking Tobacco: Former Smokeless Tobacco: Never Alcohol Use Standard Drinks/Week Comments Yes 0 (1 standard drink = 0.6 oz pur e alcohol) Sex and Gender Information Value Date Recorded Sex Assigned at Not on file Legal Sex Male 5:15 PM EST Gender Identity Not on file Sexual Orientation Not on file Obstetrics History Plan of Treatment Health Maintenance Due Date Last Done Comments Diabetes: Annual GFR (Glomerular Filtration Rate) 1942 Diabetes: Annual Foot Exam 02/13/1952 Diabetes: Annual Retina Eye Exam 02/13/1952 DTaP,Tdap,and Td Vaccines (1 - Tdap) 1961 Pneumococcal Vaccine: 50+ Years (1 of 1 - PCV) 02/13/1992 Zoster Vaccines (1 of 2) 02/13/1992 RSV Immunization Adult Patients (1 - 1-dose 75+ series) 2017 Cholesterol Screening (Lipid Panel) 04/04/2022 Depression Screening 04/04/2022 Falls Risk Assessment 04/04/2022 Social Influencers of Health Screening 04/04/2022 Diabetes: Annual Urine Albumin-Creatinine Ratio (uACR) 05/02/2022 Diabetes: Blood Sugar Contro l Test (HGBA1C) 05/02/2022 Hypertension/CHF/CAD Annual BMP Blood Test 05/02/2022 COVID-19 Vaccine ( - 2023-2 5 season) 2024 Influenza Vaccine (Season Ended) 2025 02/14/2021, 02/15/2018 HIB Vaccines Aged Out No longer eligi ble based on patient's age to complete this topic HPV Vaccines Aged Out No longer eligi ble based on patient's age to complete this topic Hepatitis A Vaccines Aged Out No long er eligible based on patient's age to complete this topic Hepatitis B Vaccines Aged Out No long er eligible based on patient's age to complete this topic IPV Vaccines Aged Out No longer eligi ble based on patient's age to complete this topic MMR Vaccines Aged Out No longer eligi ble based on patient's age to complete this topic Meningococcal ACWY Vaccine Aged Out N o longer eligible based on patient's age to complete this topic Meningococcal B Vaccine Aged Out No l onger eligible based on patient's age to complete this topic RSV Immunization Patients Under 20 months Aged Out No longer eligible b ased on patient's age to complete this topic Varicella Vaccines Aged Out No longer eligible based on patient's age to complete this topic Care Teams Extruder Operator Helper Relationship Specialty Start Date End Date Tello Valadez MD PCP - General Internal Medicine 02/23/11
== END 2024-08-15 11:12 | disposition home or self-care (01) ==
LOC: HO.LAB 11:11
PROVIDERS: PCP Internal Medicine; Visit Provider Nurse Practitioner
DX: E87.5 Hyperkalemia (principal)
CPT/HCPCS: 36415; 80048

== ENCOUNTER 2024-09-08 11:17 | Outpatient (AMB) | payer MEDICARE, BC, SELFPAY ==
--- NOTE | 2024-09-08 11:19 | A.OFFVIS_ITS ---
Intake Visit Reasons: 1 YEAR FOLLOW UP Intake Note: Patient is present for 1Y Follow Up Urology Med:NITROFURANTOIN Antibiotic Allergy: None Blood Thinner: Rivaroxaban PVR:0ml Information Systems Coordinator Required: No Allergies No Known Allergies [No Known Allergies*] Allergy (Verified 09/08/24 11:39) HPI Comments Details: James is a pleasant male. 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 Cystoscopy - 2019 inflamed portions of ileum Recurrent UTI in setting of neobladder Daily nitrofurantoin PFSH Medical History Borderline diabetes HTN (hypertension) History of recurrent UTIs History of bladder cancer Surgical History History of surgery History of prostatectomy Results AMB Urinalysis, Automated UA Leukoctes 125 [place]/uL Last Edit by Heidi Macias on 09/08/24 16:16 UA Nitrite Negative Last Edit by Heidi Macias on 09/08/24 16:16 UA Urobilinogen 0.2 mg/dL Last Edit by Heidi Macias on 09/08/24 16:16 UA Protein 15 mg/dL Last Edit by Heidi Macias on 09/08/24 16:16 UA pH 6.0 Last Edit by Heidi Macias on 09/08/24 16:16 UA Blood 10 Clem/uL Last Edit by Heidi Macias on 09/08/24 16:16 UA Specific [place] 1.015 Last Edit by Heidi Macias on 09/08/24 16:16 UA Ketone Negative Last Edit by Heidi Macias on 09/08/24 16:16 UA Bilirubin 0 mg/dL Last Edit by Heidi Macias on 09/08/24 16:16 UA Glucose 500 mg/dL Last Edit by Heidi Macias on 09/08/24 16:16 Assessment & Plan Assessment & Plan Orders: Orders AMB Urinalysis Automated Today Z13.9 - Encounter for screening, unspecified Coding
--- OUTSIDE RECORDS SUMMARY | 2024-09-08 11:44 | XMS_ITS | Clinical Summary ---
Author Organization [facility] Address [address] [facility] [address] [place] [address] Phone Care Team Providers Care Laser/Electro Optics Technician Name Role Phone Tello Valadez MD Primary Care Provider [phone] Allergies Active Allergy Reactions Criticality Noted Date Comments Irbesartan Rash Low 06/08/2024 Medications amLODIPine (NORVASC) 5 MG tablet 2.5 mg 1 Active aspirin (ST MAHAD) 81 MG EC tablet Take by mouth Active atorvastatin (LIPITOR) 80 MG tablet Take 80 mg by mouth 5 Active cholecalciferol (VITAMIN D-3) 50 MCG (1999) capsule Take by mouth Acti ve loratadine (CLARITIN) 10 MG tablet Take by mouth 2 Active metFORMIN (GLUCOPHAGE) 500 MG tablet Take 500 mg by mouth in the morning and 500 mg in the evening. Take with meals. 0 Active pravastatin (PRAVACHOL) 10 MG tablet 1 Active rivaroxaban (Xarelto) 10 MG tablet 1 Active nitroglycerin (NITROSTAT) 0.[address] 0.4 mg under the tongue every 5 (five) minutes if needed for chest pain Active Multiple Vitamin (multivitamin) capsule Take 1 capsule by mouth 1 (one) time each day Active Nitrofurantoin Anhydrous powder Take by mouth 5 Active metoprolol tartrate 25 MG tablet TAKE 1/2 TABLET BY MOUTH TWICE A DAY WITH FOOD 5 Active Jardiance 10 MG tablet Take by mouth 1 (one) time each day in the morning 5 Active glipiZIDE (GLUCOTROL XL) 2.5 MG 24 hr tablet TAKE 1 TABLET BY MOUTH EVERY DAY WITH BREAKFAST FOR 90 DAYS 5 Active carvedilol (COREG) 25 MG tablet Take 25 mg by mouth in the morning and 25 mg in the evening. Take with meals. 1 08/22/19 25 Discontinu ed(Med List Maintenanc e) furosemide (LASIX) 20 MG tablet 1 08/22/19 25 Discontinu ed(Med List Maintenanc e) isosorbide mononitrate (IMDUR) 30 MG 24 hr tablet Take 30 mg by mouth 5 08/22/19 25 Discontinu ed(Med List Maintenanc e) Semaglutide,0.2 5 or 0.5MG/DOS, (Ozempic, 0.25 or 0.5 MG/DOSE,) 2 MG/1.5ML solution pen-injector 08/22/19 Discontinu ed(Med List Maintenanc e) Active Problems Problem Noted Date Diagnosed Date [...] Encounters Date Type Department Care Team Description 08/21/2024 4:15 PM EDT [facility] Visit [facility] [address] [address] David Singleton MD Stage 3 chronic kidney disease, not otherwise specified (HCC) (Primary Dx); Diabetes mellitus, not otherwise specified (HCC); Hypertension; Other proteinuria from Last 3 Months Family History Medical [...] Sign Reading Time Taken Comments Blood Pressure 120/54 08/21/2024 4:33 PM EDT Pulse 70 06/08/2024 1:09 PM EST Temperature - - Respiratory Rate - - Oxygen Saturation - - Inhaled Oxygen Concentration - - Weight 83 kg (183 lb) 08/21/2024 4:33 PM EDT Height - - Body Mass Index - - Plan of Treatment Upcoming Encounters Date Type Department Care Team (Late st Contact Info) Description 02/20/2025 9:00 AM EDT Office Visit [facility] [address] [phone] David Singleton MD [address] [address] Health Maintenance Due Date Last Done Comments [...] Procedure Name Priority Date/Time Associated Diagnosis Comments RENAL FUNCTION PANEL (EXTERNAL LAB ENTRY) Routine 08/15/2024 RENAL FUNCTION PANEL (EXTERNAL LAB ENTRY) Routine 07/25/2024 from Last 3 Months Results * Renal Function Panel (External Lab) (08/15/2024) Only the most recent of2 resultswithin the time period is included. Glucose 102 mg/dL BUN 27 mg/dL eGFR 53 Sodium 141 mEq/L Potassium 4.5 mEq/L Chloride 110 Carbon Dioxide 25 mmol/L Calcium 9.2 mg/dL Creatinine 1.30 mg/dL Anion Gap 11 Blood 08/15/2024 us Historical Provider LAB BLOOD ORDERABLES Lotus l Result from Last [address] [facility] Care Teams Laser/Electro Optics Technician Relationship Specialty Start Date End Date Tello Valadez MD [address] [place] [address] PCP - General Internal Medicine 05/15/24
--- OUTSIDE RECORDS SUMMARY | 2024-09-08 11:44 | XMS_ITS | Clinical Summary ---
Author Organization [facility] Address [address] [place] [address] Care Team Providers Care Operator Bearer Systems Name Role Phone Tello Valadez MD Primary Care Provider [phone] Allergies No known active allergies Medications Medication [...] age to complete this topic Care Teams Operator [employer] Relationship Specialty Start Date End Date Tello Valadez MD [address] [place] [id number] PCP - General Internal Medicine 05/21/20
--- OUTSIDE RECORDS SUMMARY | 2024-09-08 11:44 | XMS_ITS | Clinical Summary ---
Author Organization [facility] Address [address] [place] [address] Care Team Providers Care Reclamation Worker Name Role Phone Tello Valadez MD Primary Care Provider [phone] Social History Tobacco Use Types Packs/Day Years [...] age to complete this topic Care Teams Reclamation Worker Relationship Specialty Start Date End Date Tello Valadez MD PCP - General Internal Medicine 02/23/11
--- OUTSIDE RECORDS SUMMARY | 2024-09-08 11:44 | XMS_ITS | Continuity of Care Document ---
Author Organization [facility] [address] [facility] [address] [place] [address] Phone [phone] Care Team Providers Care Greaser Operator Name Role Phone Tello Valadez M.D. Care Team Information Recei lashawn [phone] Problems Active Problems Provider Date Multinodular goiter [...] SIG Qnty Indications Order ing Provider Date Amlodipine Besylate2.5mg Tablets Take 1 Tablet By Mouth Every Day Aliya Chamorro M.D. 09/06/2024 Nitrofurantoin [id number] Capsules 1 cap by mouth once a day Aliya Chamorro M.D. 08/19/2022 [id number] Tablets 1 by mouth every day 90tabs Aliya Chamorro M.D. 02/13/2022 Kvzcn5wy Capsules 1 by mouth every day Aliya Chamorro M.D. 02/13/2022 Atorvastatin Kmwaijc80yd Tablets 1 by mouth every day Unknown Metoprolol [id number] Tablets Take 1/2 Tablet By Mouth Twice A Day With Food Tello Valadez M.D. Glipizide ER2.5mg Tablets ER 24HR Take 1 Tablet By Mouth Every Day With Breakfast For 90 Days Tello Valadez M.D. Adcsuutuo73gh Tablets Take 1 Tablet By Mouth Every Day In The Morning Tello Valadez M.D. Multivitamin Men 50+Men 50+ Tablets 1 by mouth every day Aliya Chamorro M.D. Vitamin B ComplexTablets 1 every day Aliya Chamorro M.D. Vitamin K206cxh (2000 Ut) Capsules 1 by mouth every day Aliya Chamorro M.D. Aspirin Ec Low Wfxl52ai Tablets DR 1 by mouth every day Aliya Chamorro M.D. Onetouch Ultrasoft LancetsMisc Test 3 Times Daily Tello Valadez M.D. Onetouch VerioStrips Test 3 Times Daily Tello Valadez M.D. Metformin [id number] Tablets Take 1 Tablet By Mouth Twice A Day Tello Valadez M.D. Llsydlxewi45ht Tablets Take 1 Tablet By Mouth Every Day Tello Valadez M.D. Onetouch Ultrasoft Tello Aparicio M.D. Vital Signs Date Vital Result Comment 09/06/2024 1:03pm BP Systolic 138 mmHg BP Diastolic 60 mmHg Heart Rate 98 /min Height 70 inches 5'10 Weight 183.38 lb BMI (Body Mass Index) 26.3 kg/m2 Results Test Acquired Date Facility Test Result H/L Range Note Hemoglobin A1c 09/06/2024 Inhouse Hemoglobin A1c 5.8% TSH Rfx on Abnormal to Free T4 01/07/2024 [facility] TSH Rfx on Abnormal to Free T4 2.020 uIU/mL 0.450-4.5 00 TSH With Reflex To FT4 07/07/[address] [facility] TSH With Reflex To FT4 2.56 uIU/mL (0.4-4.2) TSH With Reflex To FT4 02/22/[address] [facility] TSH With Reflex To FT4 1.43 uIU/mL (0.4-4.2) Glucose Fingerstick 02/22/2023 Inhouse Glucose Fingerstick 133 Hemoglobin A1c 02/22/2023 Inhouse Hemoglobin A1c 6.4% TSH With Reflex To FT4 01/05/[address] [facility] TSH With Reflex To FT4 1.45 uIU/mL (0.4-4.2) TSH With Reflex To FT4 11/21/[address] [facility] TSH With Reflex To FT4 <pending> Hemoglobin A1c 11/18/2022 [facility] Hemoglobin A1c 6.4 % High (4.0-5.6) 1 TSH With Reflex To FT4 11/18/[address] [facility] TSH With Reflex To FT4 0.02 uIU/mL Low (0.4-4.2) Free T4 11/18/2022 [facility] Free T4 1.23 ng/dL (0.70-1.8 0) TSH With Reflex To FT4 08/19/[address] [facility] TSH With Reflex To FT4 0.10 uIU/mL Low (0.4-4.2) Thyrotropin Receptor AB 08/19/2022 [facility] Thyrotropin Receptor AB <1.10 2 Free T4 08/19/2022 [facility] Free T4 1.13 ng/dL (0.70-1.8 0) TSH With Reflex To FT4 02/13/[address] [facility] TSH With Reflex To FT4 0.32 uIU/mL Low (0.4-4.2) Free T4 02/13/[address] [facility] Free T4 1.09 ng/dL (0.70-1.8 0) 1 MONITORING: In known diabetic patients, hemoglobin A1c targets should be discussed with health care provider. DIAGNOSTIC USE: The [place] [employer] (ADA) and the World Health [...] to 1.75 Unit: IU/[place] [address] Procedures Date Code Description Status 01/07/2024 74126 Collection Of Venous Blood B y Venipuncture Completed 07/07/2023 77187 Collection Of Venous Blood B y Venipuncture Completed 02/22/2023 85207 Collection Of Venous Blood B y Venipuncture Completed 11/18/2022 99642 Collection Of Venous Blood B y Venipuncture Completed 02/13/2022 54764 Collection Of Venous Blood B y Venipuncture Completed Medical Devices Description No Information Available Encounters Type Date Location Provider Dx Diagnosis Office Visit 01/07/2024 8:15a Main Office Aliya Chamorro M.D. 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 09/06/2024 E11.8 Type 2 diabetes mellitus with unspecified complications Aliya Chamorro M.D. 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 Plan of Treatment Future Appointment(s):* 03/09/2025 8:45 am - Aliya Chamorro M.D. 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
== END 2024-09-08 12:25 | disposition home or self-care (01) ==
LOC: HO.HUSH 11:17
PROVIDERS: PCP Internal Medicine; Visit Provider Urology
DX: Z13.9 Encounter for screening, unspecified (principal)

== ENCOUNTER → 2024-09-08 11:17 | Outpatient (BNVA) | payer MEDICARE, BC, SELFPAY | PROVIDERS: PCP Internal Medicine; Visit Provider Urology | DX: C67.9 Malignant neoplasm of bladder, unspecified (principal); N39.0 Urinary tract infection, site not specified | CPT/HCPCS: 81003; 99212 ==